=== PATIENT | male | born 1965 | race Caucasian/White ===

== ENCOUNTER 2024-02-18 18:08 | Emergency (ER) | payer OTHER ==
[~2024-02-18] VITALS: Ht 182.9 cm; Wt 124.7 kg
[~2024-02-18 18:08] MED LIST: CEFDINIR300 MG PO
[2024-02-18 18:20] VITALS: TEMP 98.5
[2024-02-18 18:49] LABS: BASOPHILS % 0.2 % (0.0-1.0); EOSINOPHILS # (AUTO) 0.1 (0.0-0.4); EOSINOPHILS % 0.9 % (0.0-6.0); HEMOGLOBIN 16.5 g/dL (14.0-18.0); LYMPHOCYTES # (AUTO) 2.3 (1.0-3.2); LYMPHOCYTES % 17.4 % (18.0-39.1); MEAN CORPUSCULAR HEMOGLOBIN 31.1 pg (28-32); MEAN CORPUSCULAR HGB CONC 33.7 g/dL (31-35); MEAN CORPUSCULAR VOLUME 92.3 fL (81-99); MONOCYTES # (AUTO) 0.9 (0.2-0.8); MONOCYTES % 6.7 % (4.4-11.3); NEUTROPHILS % 74.4 % (38.7-80.0); PLATELET COUNT 188 x10e3/uL (140-360); RED BLOOD COUNT 5.31 x10e6/uL (4.3-5.7); RED CELL DISTRIBUTION WIDTH 12.5 % (11.7-14.4)
[2024-02-18 19:10] LABS: ALBUMIN 3.9 g/dL (3.5-5.0); ALBUMIN/GLOBULIN RATIO 1.3 (0.8-2.0); ANION GAP 13.6 mmol/L (8-16); BILIRUBIN,TOTAL 0.7 mg/dL (0.2-1.2); CALCIUM 9.4 mg/dL (8.4-10.2); CREATININE, SERUM 1.41 mg/dL (0.72-1.25); POTASSIUM 3.6 mmol/L (3.5-5.1)
[2024-02-18] MEDS ORDERED: IOPAMIDOL 370 MG/ML 100 ML INFUS..BTL INJ ONE (19:17)
[2024-02-18 19:18] LABS: TROPONIN I 0.009 ng/mL (0-0.300)
[2024-02-18] MEDS: ASPIRIN 325 MG TAB PO STA (20:49)
[2024-02-18 22:28] LABS: TROPONIN I 0.006 ng/mL (0-0.300)
[2024-02-18 22:30] VITALS: PULSE 69; RESP 16
[2024-02-18] MEDS: Morphine 4mg INJECTION 4 MG/ML INJ IV ONE (23:12)
[2024-02-18 23:33] VITALS: BP 147/100; PULSE 69; RESP 16; TEMP 98.5; O2SAT 98
== END 2024-02-18 22:56 | disposition home or self-care (01) ==
LOC: ER 18:24
DX: R06.02 Shortness of breath (principal); R07.9 Chest pain, unspecified; R03.0 Elevated blood-pressure reading, without diagnosis of hypertension; Z91.148 Patient's other noncompliance with medication regimen for other reason; I10 Essential (primary) hypertension; N62 Hypertrophy of breast
CPT/HCPCS: 36415; 71260; 80053; 82550; 83690; 83880; 84484; 85025; 93005; 99284; Q9967

== ENCOUNTER 2024-10-21 13:57 | Observation (INO) | payer OTHER ==
[~2024-10-21] VITALS: Ht 182.9 cm; Wt 125.2 kg
[2024-10-21 14:28] VITALS: PULSE 76; RESP 16; TEMP 98.4
[2024-10-21] MEDS ORDERED: SODIUM CHLORIDE FLUSH 10 ML SYR IV PRN (14:45)
[2024-10-21 14:51] LABS: BASOPHILS % 0.2 % (0.0-1.0); EOSINOPHILS % 1.0 % (0.0-6.0); LYMPHOCYTES % 21.8 % (18.0-39.1); MONOCYTES % 6.0 % (4.4-11.3); NEUTROPHILS % 70.7 % (38.7-80.0); RED CELL DISTRIBUTION WIDTH 13.2 % (11.7-14.4)
[2024-10-21] MEDS: SODIUM CHLORIDE 0.9% 1000ML 1,000 ML IV ONE (15:00)
[2024-10-21 15:04] LABS: INR 0.92
[2024-10-21 15:14] LABS: EST GLOMERULAR FILTRATION RATE 57.0 ML/MIN (>=60)
[2024-10-21 16:44] LABS: LEUKOCYTE ESTERASE ,URINE NEGATIVE (NEGATIVE); PROTEIN,URINE DIPSTICK NEGATIVE (NEGATIVE); URINE UROBILINOGEN 0.2 mg/dL (0.2 - 1)
[2024-10-21 16:47] LABS: WBC,URINE (MAN) 0-5 /HPF (0-5)
[2024-10-21 16:48] LABS: EPITHELIAL CELLS,URINE RARE /LPF
[2024-10-21] MEDS ORDERED: ONDANSETRON HCL INJ 2MG/ML 2ML 2 MG/ML VIAL IV PRN (17:15)
[2024-10-21] MEDS ORDERED: SODIUM CHLORIDE FLUSH 10 ML SYR INJ PRN (17:15)
[2024-10-21] MEDS: ASPIRIN 81 MG CHEW TAB PO ONE ×2 (18:21)
[2024-10-21 21:56] VITALS: BP 139/89; PULSE 61; RESP 18; TEMP 97.6; O2SAT 100
[2024-10-21 22:30] VITALS: BP 139/89; PULSE 61; RESP 18; TEMP 97.6; O2SAT 100
[2024-10-22 00:03] VITALS: BP 115/85; PULSE 67; RESP 18; TEMP 97.6; O2SAT 97
[2024-10-22 04:03] VITALS: BP 132/91; PULSE 60; RESP 18; TEMP 97.6; O2SAT 97
[2024-10-22] MEDS ORDERED: FAMOTIDINE20 MG PO (05:22)
[2024-10-22] MEDS ORDERED: OZEMPIC2 MG/0.75 SC (05:22)
[2024-10-22] MEDS ORDERED: AMLODIPINE BESYL5 MG PO (05:22)
[2024-10-22] MEDS ORDERED: FLOMAX0.4 MG PO (05:22)
[2024-10-22] MEDS ORDERED: VALSARTAN320 MG PO (05:22)
[2024-10-22 07:54] LABS: BASOPHILS % 0.2 % (0.0-1.0); EOSINOPHILS % 1.4 % (0.0-6.0); LYMPHOCYTES % 23.5 % (18.0-39.1); MONOCYTES % 7.6 % (4.4-11.3); NEUTROPHILS % 66.9 % (38.7-80.0); RED CELL DISTRIBUTION WIDTH 13.0 % (11.7-14.4)
[2024-10-22 08:00] VITALS: BP 163/99; PULSE 65; RESP 20; TEMP 97.6; O2SAT 100
[2024-10-22 08:46] LABS: EST GLOMERULAR FILTRATION RATE 58.0 ML/MIN (>=60)
[2024-10-22 09:00] VITALS: BP 163/99; PULSE 65; RESP 20; TEMP 97.6; O2SAT 100
[2024-10-22 12:00] VITALS: BP 146/87; PULSE 64; RESP 20; TEMP 97.9; O2SAT 100
[2024-10-22 16:00] VITALS: BP 131/93; PULSE 58; RESP 21; TEMP 97.9; O2SAT 99
[2024-10-22] MEDS ORDERED: NON-FORMULARY MEDICATION (Semaglutide (Ozempic) 2 MG) SC SCH (18:30)
[2024-10-22] MEDS ORDERED: FAMOTIDINE 20 MG TAB PO SCH (21:00)
[2024-10-23] MEDS ORDERED: VALSARTAN 160 MG TAB PO SCH (09:00)
[2024-10-23] MEDS ORDERED: AMLODIPINE BESYLATE 5 MG TAB PO SCH (09:00)
[2024-10-23] MEDS ORDERED: TAMSULOSIN HCL 0.4 MG CAP PO SCH (09:00)
== END 2024-10-22 18:53 | disposition home or self-care (01) ==
LOC: ER 14:23 → ERHOLD 17:13 → MED/SURG3 21:47
PROVIDERS: ADMIT Internal Medicine; ATTEND Internal Medicine
DX: G45.9 Transient cerebral ischemic attack, unspecified (principal); R07.89 Other chest pain; R47.81 Slurred speech; Z72.0 Tobacco use; I10 Essential (primary) hypertension; E78.5 Hyperlipidemia, unspecified; N40.0 Benign prostatic hyperplasia without lower urinary tract symptoms
CPT/HCPCS: 36415 ×2; 70450; 70551; 71045; 80053 ×2; 81001; 82550; 83880; 84484 ×2; 85025 ×2; 85610; 85730; 92526; 92610; 93005; 99284; G0378 ×2; J7030